=== PATIENT | male | born 1985 | race American Indian/Alaskan Native ===

== ENCOUNTER → 2024-08-17 | Outpatient (CLI) | payer BC, MEDICAID, SELFPAY ==
--- NOTE | 2024-08-17 12:36 | XR_ITS ---
Examination: MRI lumbar spine without contrast Date and time of exam: August 17, 2024 1308 hours INDICATIONS: Low back pain radiating down both legs 3 years Technique: Multiple MRI axial and sagittal sections lumbar spine. Sagittal T2-weighted images, TR 3500, TE 118 T1 weighted transverse sections, TR 688 T8.5, T2-weighted sagittal sections T1 weighted sagittal sections TR 621, TE 30 T2 axial sections, TR 4, 190, TE 84. Findings: Adequate alignment lumbar vertebral bodies on the lateral view No lumbar fracture Normal marrow signal lumbar vertebral bodies Moderate disc narrowing L4-L5 L5-S1 no disc protrusion L4-L5 severe overall spinal stenosis, 6 mm extruded central disc, facet arthropathy and thickening of ligamentum flavum with moderate left L4 ganglionic compression L3-L4 5 mm central lumbar disc bulge L2-L3 9 mm left paracentral disc bulge L1-L2 no disc protrusion IMPRESSION: L4-L5 severe overall spinal stenosis including moderate left L4 ganglionic compression L3-L4 5 mm central lumbar disc bulge L2-L3 9 mm left paracentral disc bulge
== END | disposition home or self-care (01) ==
LOC: SMRI 12:23
PROVIDERS: PCP Nurse Practitioner Family; Referring Provider Nurse Practitioner Family; Visit Provider Nurse Practitioner Family
DX: M48.061 Spinal stenosis, lumbar region without neurogenic claudication (principal); G95.20 Unspecified cord compression; M51.369 Other intervertebral disc degeneration, lumbar region without mention of lumbar back pain or lower extremity pain
CPT/HCPCS: 72148

== ENCOUNTER 2025-05-08 20:13 | Emergency (ER) | payer BC, MEDICAID, SELFPAY ==
[2025-05-08 20:13] VITALS: BMI 36.9
[2025-05-08 20:54] VITALS: BP 160/100; PULSE 74; RESP 20; TEMP 37.1; O2SAT 95
--- NOTE | 2025-05-08 21:11 | PD.EDRME ---
Rapid Medical Screening Exam [facility] Arrival date/time: 05/08/25 20:13 39M with history of alcohol use (apparently sober 1 year) presents to ED with 1 month of worsening epigastric pain and some mucus/red color in stool. Chief Complaint: Abdominal Pain Vital signs: Vital Signs Temperature 98.8 F 05/08/25 20:54 Pulse Rate 74 05/08/25 20:54 Respiratory Rate 20 05/08/25 20:54 Blood Pressure 160/100 H 05/08/25 20:54 Pulse Oximetry (%) 95 05/08/25 20:54 Oxygen Delivery Method Room Air 05/08/25 20:54
[2025-05-08 21:35] LABS: Basophils # (Auto) 0.0 Thou/mm3 (0.0-0.2); Basophils % (Auto) 1 % (0-2.5); Eosinophils # (Auto) 0.2 Thou/mm3 (0.0-0.5); Eosinophils % (Auto) 2 % (0-10); Hematocrit 46.1 % (41.0-53.0); Hemoglobin 15.6 g/dL (13.5-16.0); Immature Granulocytes Auto 0.04 Thou/mm3 (0.00-0.00); Lymphocytes # (Auto) 3.5 Thou/mm3 (1.0-4.8); Lymphocytes % (Auto) 43 % (10-50); Mean Corpuscular HGB Conc 33.8 g/dl (31.0-37.0); Mean Corpuscular Hemoglobin 28.7 pg (25.0-35.0); Mean Corpuscular Volume 85 fL (80-100); Monocytes # (Auto) 0.9 Thou/mm3 (0.0-0.8); Monocytes % (Auto) 11 % (0-12); Neutrophils # (Auto) 3.6 Thou/mm3 (1.8-7.7); Neutrophils % (Auto) 43 % (37-80); Nucleated Red Blood Cell # 0.00 Thou/mm3 (0.00-0.00); Nucleated Red Blood Cell % 0 /100 WBC (0); Platelet Count 244 Thou/mm3 (140-440); RDW Standard Deviation 41.8 fL (35.1-43.9); Red Blood Count 5.44 Miln/mm3 (4.50-5.90); White Blood Count 8.2 Thou/mm3 (3.8-10.6)
[2025-05-08 22:02] LABS: Alanine Aminotransferase 57 U/L (10-49); Albumin, Serum 4.9 gm/dL (3.5-5.0); Albumin/Globulin Ratio 2.0 (1.2-2.2); Alcohol, Blood Medical < 3.0 mg/dL (0-10.0); Alkaline Phosphatase 123 U/L (46-116); Anion Gap 10 (7-16); Aspartate Amino Transferase 28 U/L (0-34); BUN/Creatinine Ratio 13 Ratio (12-20); Bilirubin,Total 0.4 mg/dL (0.3-1.2); Blood Urea Nitrogen 10 mg/dL (9-23); Calcium 9.5 mg/dL (8.3-10.6); Calcium (Corrected) 9.5 mg/dL (8.5-10.1); Carbon Dioxide 24.2 mMol/L (20.0-31.0); Chloride 108 mMol/L (98-107); Creatinine (Component) 0.8 mg/dL (0.6-1.3); Estimated Creatinine Clearance 150.9 mL/min (>60); Globulin 2.5 gm/dL (2.3-3.5); Glucose 154 mg/dL (74-106); Lipase 54 U/L (12-53); Osmolality,Calculated 285 (275-295); Potassium 4.1 mMol/L (3.4-5.1); Sodium 142 mMol/L (136-145); Total Protein 7.4 gm/dL (5.7-8.2); eGFR > 60 See Note
[2025-05-08 22:54] LABS: Collection Type, Urine Clean Catch; Squamous Epithelial Cell,Urine 0 /hpf (0-5)
[2025-05-08 23:03] LABS: Bacteria,Urine Rare; Bilirubin,Urine Negative (Negative); Blood,Urine Negative (Negative); Clarity,Urine Clear (Clear/Hazy); Color,Urine Yellow (Lt Yel-Yel); Culture Indicated,Urine Not Indicated; Glucose, Urine 3+ (Negative); Ketones,Urine Negative (Negative); Leukocyte Esterase,Urine Negative (Negative); Nitrite,Urine Negative (Negative); PH,Urine 6.0 (5.0-7.0); Protein,Urine Trace (Neg - Trace); RBC,Urine 2 /hpf (0-3); Specific Gravity,Urine 1.030 (1.001-1.035); Urobilinogen,Urine Negative mg/dL (0.0-1.0); WBC,Urine 1 /hpf (0-5)
[2025-05-08 23:10] LABS: Amphetamine/Methamp Scrn,U Negative (Negative); Barbiturate Screen,Urine Negative (Negative); Benzodiazepines Screen,Urine Negative (Negative); Benzoylecgonine Screen, Ur Negative (Negative); Fentanyl Screen,Urine Negative (Negative); Opiate Screen,Urine Negative (Negative); THC Screen,Urine Positive (Negative)
[2025-05-08 23:53] VITALS: BP 132/85; PULSE 77; RESP 16; TEMP 36.9; O2SAT 96
--- NOTE | 2025-05-09 01:22 | EDNOTE_ITS ---
ED Abdominal Pain RME/HPI General Chief Complaint: Abdominal Pain Stated complaint: UPPER ABDOMINAL PAIN Arrival date/time: 05/08/25 20:13 RME / HPI RME / HPI narrative: 05/08/25 20:13 39M with history of alcohol use (apparently sober 1 year) presents to ED with 1 month of worsening epigastric pain and some mucus/red color in stool. Dr. Alegre?s Main ED Evaluation: 39yo male presents to the ED for a chief complaint of worsening epigastric pain. Patient states he's had burning epigastric pain for awhile , but reports it's progressively gotten worse. Patient notes he does have heartburn . Patient denies any N/V, fever, chills, or any other associated symptoms. NKA. Related Data Previous Rx's ?Medication ?Instructions ?Recorded docusate sodium 100 mg capsule 100 mg PO BID #40 caps 06/06/23 (Colace) hydrocodone 5 mg-acetaminophen 325 1 tab PO Q6H PRN pa in (scale score 06/06/23 mg tablet 7-10) #20 tabs ibuprofen 600 mg tablet 600 mg PO Q8H PRN pain (scal e 06/06/23 score 4-6) #15 tabs cyclobenzaprine 10 mg tablet 10 mg PO HS #14 tabs 04/19 09/11 ibuprofen 800 mg tablet 800 mg PO Q6H PRN pain #14 t abs 05/09/24 pantoprazole 40 mg tablet,delayed 40 mg PO QDAY #30 ta bs 05/09/25 release (Protonix) Allergies Allergy/AdvReac Type Severity Reaction Status Date / Time No Known Allergies Allergy Verified 05/08/24 18:21 Review of Systems Review of Systems Systems Reviewed: All systems reviewed, normal except as documented Past Medical History Past Medical History NEUROLOGIC: Negative Neurological Disorders or Seizures CARDIAC: Positive Hypertension; Negative Congestive Heart Failure RESPIRATORY: Negative Chronic Obstructive Pulmonary Disease (COPD) GASTROINTESTINAL: Negative Gastrointestinal Disorders GENITOURINARY: Negative Genitourinary Disorders or Renal Disease MUSCULOSKELETAL: Negative Musculoskeletal Disorders ENDOCRINE: Positive Diabetes Mellitus Type 2; Negative Diabetes Mellitus Type 1 HEMATOLOGIC: Negative Blood Disorders PSYCHO/SOCIAL: Positive Depression OTHER HISTORY: Negative Autoimmune Disease, MRSA, Clostridium Difficile or Cancer Social History SMOKING STATUS: Current every day smoker SECOND HAND EXPOSURE: No SUBSTANCE USE: does not use ED Exam Narrative Physical exam: Generally patient is alert and angry. Heart regular rate and rhythm, lungs clear to auscultation equal bilaterally, abdomen is soft obese bowel sounds present nondistended epigastric abdominal tenderness without rebound without right upper quadrant abdominal tenderness, extremities showed no edema, neurologic exam showed [place] Coma Scale of 15 without focal motor deficit. Course Quality Measures none Orders Category Date Time Status Alcohol, Blood Medical Stat Lab 05/08/25 21:19 Completed CBC Stat Lab 05/08/25 21:19 Completed CMP [Comprehensive Metabolic Panel] Stat Lab 05/08/25 21:19 Completed Drug Screen,Urine Stat Lab 05/08/25 22:45 Completed Lipase Stat Lab 05/08/25 21:19 Completed Urinalysis, C/S if Indicated Stat Lab 05/08/25 22:45 Completed Vital Signs Vital signs: Vital Signs Temperature 98.8 F 05/08/25 20:54 Pulse Rate 74 05/08/25 20:54 Respiratory Rate 20 05/08/25 20:54 Blood Pressure 160/100 H 05/08/25 20:54 Pulse Oximetry (%) 95 05/08/25 20:54 Oxygen Delivery Method Room Air 05/08/25 20:54 Abdominal Pain MDM MDM Narrative MDM Narrative:: Scribe Attestation: 05/09/25 Ca Flynn am scribing for and in the presence of Dr. Alegre. And interpreted all labs. There is no leukocytosis. Hemoglobin is 15. Patient admits to having heartburn. LFTs are little change from previous. Lipase is 1.2 above normal. Patient appears very angry and states that he is angry because he has been here for too long. He wishes to go home. Patient will be discharged. It was explained to the patient that he has gastritis. He is avoid hot spicy greasy fatty foods. Use [id number] Maalox or Mylanta as needed for pain. Protonix as prescribed. Patient data External records reviewed:: [facility] previous records (Per chart review, patient was seen here on 05/09/24 for back pain.) Clinical information provided by:: patient Social determinants that could affect healthcare access:: none Patient has the following chronic illnesses:: DM, HTN How is presenting disease/condition affected by chronic disease/condition?: u neffected by Evaluation data The following diagnostics were reviewed and interpreted by me:: lab results Lab and/or radiology exams considered but not ordered:: none Interpretation Summary: See MDM Medications / Prescriptions Medications or Prescriptions considered but not ordered:: none Medication administrations:: see above, if any Consultations Consultation(s) initiated? (list below): No Diagnosis Differential diagnosis abdominal pain: other (See MDM) Most likely diagnosis given after review of the tests above:: see clinical impression below Admission Indicated Admission indicated?: not indicated Admission Request Was there a request for admission?: No Disposition Plan Disposition Plan: Discharge Discharge Attestation Discharge Attestation: The patient and all family members were given an opportunity to ask questions and understood the discharge instructions. Discharge instructions specifically effects, indications for sooner follow up or return to the emergency department, and the expected course of current diagnosis. Patient condition: Stable Discharge Plan Plan Patient Disposition: HOME (Self Care) Prescriptions/Referrals Prescriptions/Med Rec: New pantoprazole [Protonix] 40 mg tablet,delayed release (DR/EC) 40 mg PO QDAY Qty: 30 0RF No Action docusate sodium [Colace] 100 mg capsule 100 mg PO BID Qty: 40 0RF hydrocodone-acetaminophen 5-325 mg tablet 1 tab PO Q6H MDD 4 PRN (Reason: pain (scale score 7-10)) Qty: 20 0RF ibuprofen 600 mg tablet 600 mg PO Q8H PRN (Reason: pain (scale score 4-6)) Qty: 15 0RF ibuprofen 800 mg tablet 800 mg PO Q6H PRN (Reason: pain) Qty: 14 0RF cyclobenzaprine 10 mg tablet 10 mg PO HS Qty: 14 0RF Referrals: Jessica Villar PA-C ([facility]) [Primary Care Provider] - In 1 week Problem List Clinical Impression: Gastritis Patient/Caregiver Discharge Instructions Education Materials: ED Gastritis (Adult) Additional Instructions: Patient is to avoid hot spicy greasy fatty foods. You may use [id number] Maalox or Mylanta or Gaviscon as prescribed. Protonix as prescribed. Follow-up with your doctor as needed for further treatment and evaluation. Print Language: Icelandic Stand Alone Forms: [facility] Award Info., Patient Portal Info Letter
[2025-05-09 01:41] VITALS: BP 131/98; PULSE 69; RESP 15; TEMP 36.4; O2SAT 96
== END 2025-05-09 01:42 | disposition home or self-care (01) ==
PROVIDERS: Physician Assistant; Emergency Provider Emergency Medicine; PCP Nurse Practitioner Family
DX: K29.70 Gastritis, unspecified, without bleeding (principal)
CPT/HCPCS: 36415; 80053; 80307; 80320; 81001; 83690; 85025; 99281; G0480